=== PATIENT | male | born 1970 | race Caucasian/White ===

== ENCOUNTER → 2020-06-01 19:11 | Outpatient (CLI) | payer OTHER, SELFPAY ==
--- NOTE | 2020-06-01 19:18 | DI.RAD.S_ITS ---
PROCEDURE: XR KNEE RT 3V INDICATIONS: RIGHT KNEE PAIN TECHNIQUE: 3 views of the knee were acquired. COMPARISON: None. FINDINGS: Bones: No fractures or dislocations. No suspicious bony lesions. Medial femoral tibial compartment joint space narrowing is seen. Soft tissues: No joint effusion. No suspicious soft tissue calcifications. IMPRESSION: No right knee fracture or dislocation. Right medial femoral tibial compartment osteoarthritis. Dictated by: Aron Ramirez M.D. on 06/01/2020 at 19:33 Approved by: Aron Ramirez M.D. on 06/01/2020 at 19:33
== END ==
PROVIDERS: Referring Provider Family Medicine; Visit Provider Family Medicine
DX: M25.561 Pain in right knee (principal); M17.11 Unilateral primary osteoarthritis, right knee
CPT/HCPCS: 73562

== ENCOUNTER → 2020-07-10 15:35 | Outpatient (CLI) | payer OTHER, SELFPAY ==
--- NOTE | 2020-07-10 15:38 | DI.MRI.S_ITS ---
PROCEDURE: MR KNEE RT WO CON INDICATIONS: Pain in right knee TECHNIQUE: Noncontrast sagittal PD fast spin echo and T2 fast spin echo with fat saturation, sagittal 3-D FLASH with fat saturation; coronal T1 spin echo and PD fast spin echo with fat saturation, and axial PD fast spin echo with fat saturation through the knee. COMPARISON: [facility], CR, XR KNEE RT 3V, 06/01/2020, 19:18. FINDINGS: Image quality: Excellent. FINDINGS: Image quality: Excellent. Menisci: Medial extrusion of the medial meniscus. Amorphous and linear horizontal high signal intensity within the anterior horn, body, and posterior horn lateral meniscus is present, demonstrating inferior articular surface extension, indicating complex tearing. Lateral meniscus is intact. Cruciate ligaments: The anterior and posterior cruciate ligaments appear intact. Medial structures: The medial collateral ligament appears intact. Mild T2 signal elevation surrounds the medial collateral ligament. Visualized portions of the pes anserinus tendons appear normal. No abnormal bursal fluid. Lateral structures: The lateral collateral ligament, long and short heads of the biceps femoris tendon appear intact. The popliteus tendon appears normal. Iliotibial band appears normal. Anterior structures: The quadriceps and patellar tendons appear intact. Mild T2 signal elevation within the quadriceps tendon at the patellar insertion site. Patellar alignment is normal. No femoral trochlear dysplasia or ventral trochlear prominence. No edema in the infrapatellar fat pad. Bones and cartilage: No bone marrow contusions or fractures. Mild tricompartmental periarticular osteophyte formation. Mild subchondral degenerative marrow edema within the mid weight-bearing aspect of the medial tibial plateau. Severe articular cartilage loss diffusely overlies the weight-bearing aspects of the medial femoral condyle and medial tibial plateau. Mild articular cartilage loss diffusely overlies the weight-bearing aspects of the lateral femoral condyle and lateral tibial plateau. Joint space: There is a small knee joint effusion and a small Urbina's cyst. Normal appearing synovial plicae are incidentally noted. IMPRESSION: 1. Tricompartmental osteoarthritis with associated articular cartilage loss. 2. Complex tearing of the medial meniscus. 3. MCL strain. 4. Mild quadriceps tendinopathy. 5. Knee joint effusion and Urbina's cyst. Dictated by: Tran Melgar M.D. on 07/13/2020 at 8:28 Approved by: Tran Melgar M.D. on 07/13/2020 at 8:31
== END ==
PROVIDERS: PCP Family Medicine; Referring Provider Family Medicine; Visit Provider Family Medicine
DX: M25.561 Pain in right knee (principal); M17.11 Unilateral primary osteoarthritis, right knee; S83.231A Complex tear of medial meniscus, current injury, right knee, initial encounter; S83.511A Sprain of anterior cruciate ligament of right knee, initial encounter; M25.461 Effusion, right knee; M71.21 Synovial cyst of popliteal space [Baker], right knee
CPT/HCPCS: 73721

== ENCOUNTER 2021-06-11 19:14 | Emergency (ER) | payer OTHER, SELFPAY ==
[2021-06-11 19:27] VITALS: BP 115/76; PULSE 77; RESP 20; TEMP 36.2; O2SAT 90; BMI 30.7
--- NOTE | 2021-06-11 19:32 | DI.RAD.S_ITS ---
PROCEDURE: XR ANKLE RT MIN 3V INDICATIONS: fall TECHNIQUE: 3 views of the ankle were acquired. COMPARISON: None. FINDINGS: Bones: There is a fracture involving the distal tip of the right medial malleolus with overlying soft tissue edema. Cortical irregularity involving the dorsal, posterior aspect of the calcaneus near the posterior margin of the talus is seen only on the lateral view. This may represent a possible avulsion fracture fragment. Ankle mortise is normally aligned. No suspicious bony lesions. Soft tissues: No tibiotalar joint effusion. Achilles tendon appears normal. Moderate soft tissue swelling of the right ankle. IMPRESSION: Mildly displaced distal medial malleolar fracture with moderate overlying soft tissue edema. Mild cortical irregularity involving the dorsal aspect of the calcaneus just posterior to the talus. This may represent a possible avulsion fracture. Recommend clinical correlation. Dictated by: Tito Daniel M.D. on 06/11/2021 at 20:31 Approved by: Tito Daniel M.D. on 06/11/2021 at 20:34
--- NOTE | 2021-06-11 19:32 | DI.RAD.S_ITS ---
PROCEDURE: XR SHOULDER RT MIN 2V INDICATIONS: fall 15 ft TECHNIQUE: 2 views of the shoulder were acquired. COMPARISON: None. FINDINGS: Bones: No fractures or dislocations. No suspicious bony lesions. Visualized ribs appear intact. Degenerative changes of the acromioclavicular joint. Soft tissues: No suspicious soft tissue calcifications. IMPRESSION: Right shoulder without acute fracture or dislocation. Acromioclavicular osteoarthrosis. Dictated by: Tito Daniel M.D. on 06/11/2021 at 20:30 Approved by: Tito Daniel M.D. on 06/11/2021 at 20:31
--- NOTE | 2021-06-11 19:38 | ED.FALL ---
HPI - Fall General Chief Complaint: Fall Stated Complaint: Fall 15' off Ladder, Rt Shoulder and Ankle Injury Time Seen by Provider: 06/11/21 19:38 Source: patient Mode of arrival: Ambulatory History of Present Illness HPI Narrative: 50-year-old male nonsmoker with noncontributory medical history presents with his in the chief complaint of an accidental fall from a ladder with injury to right shoulder and ankle. He states that he was reaching from a ladder while making a tree house when the ladder started falling and he landed on his right ankle and shoulder. He is activated as a modified trauma given the fall from 15 ft. He is awake, alert and oriented, he denies any head neck or back pain. Denies any chest pain, trouble breathing nor nausea, vomiting or diarrhea. He has no abdominal pain. He has pain in his right shoulder but full range of motion. He denies numbness, tingling or weakness. He has pain in his right ankle when ambulating but denies any numbness, tingling or weakness. He has no pain in his tsai, knee, hip. He denies any trouble with bowel or bladder. Related Data Previous Rx's Medication Instructions Recorded hydrocodone 5 mg-acetaminophen 325 1 tab PO Q4-6H PRN #10 tab 06/11/21 mg tablet Allergies Allergy/AdvReac Type Severity Reaction Status Date / Time No Known Drug Allergies Allergy Verified 06/11/21 21:44 Review of Systems Review of Systems Narrative: GENERAL: Denies chills, fatigue, malaise, fever, sweats. HEENT: Denies sinus pain, ear pain, sore throat, difficulty swallowing, dizziness. RESPIRATORY: Denies dyspnea, cough, wheezing, hemoptysis, sputum. CARDIOVASCULAR: Denies chest pain, palpitations, orthopnea, edema, GASTROINTESTINAL: Denies nausea, vomiting, abdominal pain, diarrhea, constipation, melena. : Denies dysuria, frequency, incontinence, hematuria, urinary retention. MUSCULOSKELETAL: See HPI SKIN: Denies rash, skin lesions, or other NEUROLOGIC: Denies weakness, headache, numbness, change in speech, confusion, seizures, incoordination. PSYCHIATRIC: No concerning psychosocial issues. 12 point review of systems is negative except for those stated above Exam Narrative Exam Narrative: GENERAL: [50] year old patient appears stated age. Well-developed patient, in mild distress. GCS 15, sitting upright in the cart, A&O x3 HEAD: Atraumatic. Normocephalic. EYES: Pupils equal round and reactive. No hyphema Extraocular motions intact. No scleral icterus. No injection or drainage. ENT: Nose without bleeding, purulent drainage. No nasal septal hematoma or hemotympanum Throat without erythema, tonsillar hypertrophy or exudate. Airway patent. NECK: Trachea midline. Non tender CARDIOVASCULAR: Regular rate and rhythm without murmurs, gallops, or rubs. RESPIRATORY: Clear to auscultation. Breath sounds equal bilaterally. No wheezes, rales, or rhonchi. GASTROINTESTINAL: Abdomen soft, non-tender, nondistended. EXTREMITIES: Right shoulder tender to palpate, no obvious deformity, full but painful range of motion. No pain in elbow or wrist, this is closed and neurovascularly intact. Moderate swelling to right ankle, no obvious deformity, closed and neurovascularly intact, no pain in foot, cap refill less than 2 seconds, dorsalis pedis intact. No pain on knee or hip exam, no ankle ligamentous instability or laxity BACK: Nontender without deformity or crepitance. No flank tenderness. NEURO: AOx3. SKIN: No rash or erythema of visible areas Initial Vital Signs Initial Vital Signs: Vital Signs Temperature 97.1 F L 06/11/21 19:27 Pulse Rate 77 06/11/21 19:27 Respiratory Rate 20 06/11/21 19:27 Blood Pressure 115/76 06/11/21 19:27 Pulse Oximetry 90 L 06/11/21 19:27 Procedures Orthopedic Splinting/Casting Injury #1: Side: right Upper Extremity Injury Location: shoulder Upper Extremity Immobilizer: sling/shoulder immobilizer Post splinting neuro exam: intact Post splinting vascular exam: intact Placed by: Nursing Injury #2: Lower Extremity Injury Location: ankle Lower Extremity Immobilizer: boot orthosis Post splinting neuro exam: intact Post splinting vascular exam: intact Course Orders Ordered: Discontinued Medications Hydrocodone Bitart/Acetaminophen (Hydrocodone/Acet 5/325 Prepack) 1 bottle MISC SEEINSTR ONE Stop: 06/11/21 21:30 Last Admin: 06/11/21 21:44 Dose: 1 bottle Documented by: ATAYLOR Diphtheria/Tetanus/Acell Pertussis (Tet,Diph,Pertuss(Acell),Vac/Pf 0.5 Ml Syringe) 0.5 ml IM .ONCE ONE Stop: 06/11/21 21:30 Last Admin: 06/11/21 21:44 Dose: 0.5 ml Documented by: ATAYLOR Consultations Consultation #1: Findings discussed with on-call orthopedist, walking boot and sling appropriate, no need for advanced imaging of extremities. Vital Signs Vital signs: Vital Signs - 8 hr 06/11/21 19:27 Temperature 97.1 F L Pulse Rate 77 Respiratory Rate 20 Blood Pressure 115/76 Pulse Oximetry 90 L MDM - Fall Imaging Data Extremity x-ray #1: Radiologist's Impression: [address] [address] XRay Report Signed Patient: Rohith Wong MR#: [id number] : 1970 Acct:[id number] Age/Sex: 50 / M Date of Service: 06/11/21 Loc: ED Accession Number: [id number] ?? Procedure: XR shoulder RT min 2V Ordering Provider: Alexander Reynaga D.O. PROCEDURE:? XR SHOULDER RT MIN 2V ? INDICATIONS:? fall 15 ft ? TECHNIQUE:? 2 views of the shoulder were acquired.? ? COMPARISON:? None. ? FINDINGS:? ? Bones:? No fractures or dislocations.? No suspicious bony lesions.? Visualized ribs appear intact.? Degenerative changes of the acromioclavicular joint. ? Soft tissues:? No suspicious soft tissue calcifications.? ? IMPRESSION:? Right shoulder without acute fracture or dislocation.? Acromioclavicular osteoarthrosis. ? ? Dictated by: Tito Daniel M.D. on 06/11/2021 at 20:30 ? ? Approved by: Tito Daniel M.D. on 06/11/2021 at 20:31? Extremity x-ray #2: Radiologist's Impression: Chart Viewer Diagnostics Subcategory All Activity ??:?? All Time ??:?? All Subcategories Filter Laboratory Imaging Microbiology Pathology Blood Bank Tests Cardiovascular Other Specialty DATE TYPE STATUS REF RANGE/AUTHOR Hx 06/11/21 19:32 Shoulder X-Ray Signed Tito Daniel 06/11/21 19:32 Ankle X-Ray Signed Tito Daniel 07/10/20 15:38 Knee MRI Signed Tran Melgar 06/01/20 19:18 Knee X-Ray Signed JamesAron Jay A ED 50, M?1970 MRN#? [id number] DEP ER,?[facility] ED??? 180.34cm 99.79kg BMI: 30.7kg/m? Fall Acc#? [id number] Resus Status Not Ordered No Hx Avail Special Indicators No Data to Display Home Meds Confirmed Prescription Monitoring Program Total 30 MME/Day Pending Discharge MEDICATIONS (INSTRUCTIONS) LAST TAKEN Active hydrocodone-acetaminophen 1 tabPOQ4-6HPRN#10 tab 30 MME/Day Allergies No Known Drug Allergies Problems ? ONSET Shoulder sprain Ankle fracture, right Vital Signs 06/11/21 22:00 BP 124/82? Pulse 94?H Resp 16? O2 Sat 96? Delivery Room Air? Diagnostics Reports Rohith Wong??50??M??1970 ? Allergy/Adv: No Known Drug Allergies Close Shoulder X-Ray (Signed) Tito Daniel - 06/11/21 Ankle X-Ray (Signed) Tito Daniel - 06/11/21 Knee MRI (Signed) Tran Melgar - 07/10/20 Knee X-Ray (Signed) Aron Ramirez - 06/01/20 [place] [address] XRay Report Signed Patient: Rohith Wong MR#: [id number] : 1970 Acct:[id number] Age/Sex: 50 / M Date of Service: 06/11/21 Loc: ED Accession Number: [id number] ?? Procedure: XR ankle RT min 3V Ordering Provider: Alexander Reynaga D.O. PROCEDURE:? XR ANKLE RT MIN 3V ? INDICATIONS:? fall ? TECHNIQUE:? 3 views of the ankle were acquired.? ? COMPARISON:? None. ? FINDINGS:? ? Bones:? There is a fracture involving the distal tip of the right medial malleolus with overlying soft tissue edema.? Cortical irregularity involving the dorsal, posterior aspect of the calcaneus near the posterior margin of the talus is seen only on the lateral view.? This may represent a possible avulsion fracture fragment.? Ankle mortise is normally aligned.? No suspicious bony lesions.? ? Soft tissues:? No tibiotalar joint effusion.? Achilles tendon appears normal.? Moderate soft tissue swelling of the right ankle. ? IMPRESSION:? Mildly displaced distal medial malleolar fracture with moderate overlying soft tissue edema. ? Mild cortical irregularity involving the dorsal aspect of the calcaneus just posterior to the talus.? This may represent a possible avulsion fracture.? Recommend clinical correlation. ? Dictated by: Tito Daniel M.D. on 06/11/2021 at 20:31 ? ? Approved by: Tito Daniel M.D. on 06/11/2021 at 20:3 MDM Narrative Medical decision making narrative: Patient has very reassuring history and physical exam, despite fall his images are very limited, closed and neurovascularly intact. He has no head neck or back pain. Patient is alert and oriented, orthopedics have been consulted regarding findings on imaging and splinting per their wishes. Patient is given extensive return precautions and questions have been answered to his apparent satisfaction Discharge Plan Departure Patient Disposition: Home Clinical Impression: Shoulder sprain, Ankle fracture, right Instructions: DI for Ankle Fracture, DI for Shoulder Sprain Activity Restrictions/Additional Instructions: *You have been diagnosed with [fall with mild right ankle fracture and right shoulder sprain. As we discussed your physical exam and imaging is largely very reassuring. You do have a small fracture of your right ankle but after discussion with Orthopedics your able to ambulate as tolerated with the boot provided *What to do: *Please continue to take your regular medications as directed. [x ] New medication prescriptions sent to your pharmacy: [ [facility]] [ ] New medication written as a paper prescription [x] Tylenol and occasional Motrin for pain *Please follow up with [Benny ] of [facility] in 2-3 days, call for an appointment. Let them know you were seen in the Emergency Department and that we ask that you be seen in follow up. We will electronically transmit a record of today's note if your PCP is in our system *Return to Emergency Department if you should have any new, worsening or concerning symptoms, such as [worsening pain, significant swelling, cold extremities, numbness, tingling, weakness or other bothersome symptoms Splint Care: Keep splint clean and dry. Elevated affected body part to decrease swelling. OK to use ice pack on the affected body part. Use for 15-20 minutes each time, for 5-6x per day. If you develop worsening pain, numbness, tingling, discoloration of the affected body part, loosen the splint and either see your doctor for an urgent re-assessment, or return to the Emergency Department. Return to the Emergency Department for any new or worsening symptoms. Prescriptions: New hydrocodone-acetaminophen 5-325 mg tablet 1 tab PO Q4-6H PRN (Reason: pain) Qty: 10 0RF Referrals: Sunday Zapata MD [Physician] - Abraham Covarrubias MD [Primary Care Provider] -
[2021-06-11] MEDS: HYDROCODONE/ACET 5/325 PREPACK 1 BOTTLE MISC (21:44)
[2021-06-11] MEDS: TET,DIPH,PERTUSS(ACELL),VAC/PF 0.5 ML SYRINGE IM (21:44)
[2021-06-11 22:00] VITALS: BP 124/82; PULSE 94; RESP 16; O2SAT 96
== END 2021-06-11 22:00 | disposition home or self-care (01) ==
PROVIDERS: Emergency Provider Emergency Medicine; PCP Family Medicine
DX: S43.401A Unspecified sprain of right shoulder joint, initial encounter (principal); S82.51XA Displaced fracture of medial malleolus of right tibia, initial encounter for closed fracture; W11.XXXA Fall on and from ladder, initial encounter; Y93.89 Activity, other specified; Z23 Encounter for immunization
CPT/HCPCS: 73030; 73610; 90471; 99283; 90715

== ENCOUNTER → 2022-01-23 16:19 | Outpatient (CLI) | payer OTHER, SELFPAY ==
--- NOTE | 2022-01-23 16:20 | DI.RAD.S_ITS ---
PROCEDURE: XR WRIST LT MIN 3V INDICATIONS: Pain left wrist TECHNIQUE: 4 views of the wrist were acquired. COMPARISON: None. FINDINGS: Bones: No fractures or dislocations. No suspicious bony lesions. Scaphoid view: No navicular fractures are seen. Soft tissues: No suspicious soft tissue calcifications. IMPRESSION: No displaced fractures are seen. If there is snuffbox tenderness (or other clinical suspicion for a fracture not seen on these images) then a repeat examination would be recommended in 10 to 14 days, following splinting. Dictated by: Richy Bhat M.D. on 01/23/2022 at 15:56 Approved by: Richy Bhat M.D. on 01/23/2022 at 15:57
== END ==
PROVIDERS: PCP Family Medicine; Referring Provider Physician Assistant; Visit Provider Physician Assistant
DX: S69.92XA Unspecified injury of left wrist, hand and finger(s), initial encounter (principal); X58.XXXA Exposure to other specified factors, initial encounter
CPT/HCPCS: 73110

== ENCOUNTER 2023-03-16 15:44 | Emergency (ER) | payer OTHER, SELFPAY ==
[2023-03-16 15:55] VITALS: BP 202/113; PULSE 115; RESP 20; TEMP 36.6; O2SAT 98; BMI 32.1
--- NOTE | 2023-03-16 15:55 | DI.RAD.S_ITS ---
PROCEDURE: XR CHEST 1V INDICATIONS: chest pain TECHNIQUE: One view of the chest was acquired. COMPARISON: None. FINDINGS: Surgical changes and devices: None. Lungs and pleura: Lungs are clear. No pleural effusions or pneumothorax. Mediastinum: Mediastinal contours appear normal. Heart size is normal. Bones and chest wall: No suspicious bony lesions. Overlying soft tissues appear unremarkable. IMPRESSION: No acute cardiopulmonary process. Dictated by: Lisa Zeng M.D. on 03/16/2023 at 16:56 Approved by: Lisa Zeng M.D. on 03/16/2023 at 16:57
[2023-03-16 16:20] LABS: Add Manual Diff / Slide Review NO; Basophils Absolute Auto 100 /uL (0-100); Eosinophils Absolute Auto 200 /uL (0-450); Eosinophils Percent Auto 2.7 % (2-4); Hemoglobin 16.2 g/dL (13.5-17.5); Lymphocytes Absolute Auto 1400 /uL (1100-4500); Lymphocytes Percent Auto 24.4 % (25-40); Mean Corpuscular HGB Conc 34.5 % (30-36); Mean Corpuscular Hemoglobin 30.4 PG (26-34); Mean Corpuscular Volume 88.1 fL (80-100); Monocytes Absolute Auto 300 /uL (0-900); Neutrophils Absolute Auto 3700 /uL (1500-7000); Neutrophils Percent Auto 65.9 % (50-75); Platelet Count 240 X10^3/uL (150-400); Red Blood Cell Count 5.34 X10^6/uL (4.5-5.9); Red Cell Distribution Width 13.6 % (11.6-14.8); White Blood Cell Count 5.7 X10^3/uL (4.5-11.0)
[2023-03-16 16:25] LABS: Prothrombin Time 11.5 SECONDS (9.4-12.5)
[2023-03-16 16:26] VITALS: BP 170/101; PULSE 88; RESP 16; O2SAT 99
[2023-03-16 16:28] LABS: PTT Partial Thromboplastin Tim 29 SECONDS (25.1-36.5)
[2023-03-16 16:32] LABS: Alanine Aminotransferase 102 IU/L (<50); Albumin 4.7 g/dL (3.5-5.0); Albumin Globulin Ratio 1.4 (1.0-2.8); Alkaline Phosphatase 69 U/L (38-126); Aspartate Aminotransferase 57 IU/L (17-59); Bilirubin Total 0.8 mg/dL (0.2-1.3); Blood Urea Nitrogen 12 mg/dL (9-20); Calcium 9.7 mg/dL (8.4-10.2); Carbon Dioxide 26 mmol/L (22-32); Chloride 99 mmol/L (98-107); Creatine Kinase 136 U/L (55-170); Estimated Glomerular Filt Rate > 60 mL/min (>60); Globulin 3.4 g/dL (1.7-4.1); Glucose 104 mg/dL (70-100); HEMOLYSIS < 15 (0-50); Lipase 64 U/L (23-300); Potassium 3.9 mmol/L (3.4-5.1); Sodium 135 mmol/L (137-145); Total Protein 8.1 g/dL (6.3-8.2)
[2023-03-16 16:42] LABS: Troponin I < 0.012 ng/mL (0.01-0.034)
--- NOTE | 2023-03-16 17:00 | ED.CHESTPAIN ---
HPI - Chest Pain General Chief Complaint: Chest Pain Stated Complaint: chest pain, high blood pressure Time Seen by Provider: 03/16/23 16:26 Source: patient Mode of arrival: Ambulatory History of Present Illness HPI narrative: 52-year-old male with history of hypertension, hyperlipidemia presents by private vehicle from home for 3 weeks of intermittent left-sided suprasternal chest discomfort. Patient states that he has been incorporating pushups into his workout routine, which initially felt was causing his pain and he thought nothing of it, however today his blood pressure was 160 systolic and he noticed pain radiating into his left shoulder, which caused him concern and he presented to the ER for evaluation. Denies history of heart problems. Denies family history of heart problems. Never smoker. Related Data Home Medications Medication Instructions Recorded Confirmed lisinopril 5 mg tablet mg 03/16/23 rosuvastatin 10 mg tablet (Crestor) mg PO DAILY 03/16/23 Allergies Allergy/AdvReac Type Severity Reaction Status Date / Time No Known Drug Allergies Allergy Verified 03/16/23 15:58 Review of Systems Review of Systems Narrative: Negative except as noted above Patient History Medical History (Updated 03/16/23 @ 17:55 by Rebecca Shaikh MD) Injury of left wrist Social History Smoking Status: Never smoker Smoking Status: Never smoker alcohol intake frequency: 3 or more drinks per day Substance Use Type: does not use Exam Initial Vital Signs Initial Vital Signs: Vital Signs Temperature 98 F 03/16/23 15:55 Pulse Rate 115 H 03/16/23 15:55 Respiratory Rate 20 03/16/23 15:55 Blood Pressure 202/113 H 03/16/23 15:55 Pulse Oximetry 98 03/16/23 15:55 Oxygen Delivery Method Room Air 03/16/23 15:55 Const: Awake, alert, no acute distress, nontoxic appearing Cardiac: regular rate, regular rhythm, pain over L pectoralis muscle RESP: unlabored, clear bilaterally, no wheezing GI: Atraumatic, soft, nontender MSK: Atraumatic, full range of motion, pulses equal Skin: Warm, Dry, intact, no rashes Neuro: AO x3, CN II-XII grossly intact, moves all extremities Course Orders Ordered: Discontinued Medications Aspirin (Aspirin 81 Mg Chew Tab) 324 mg PO NOW ONE Stop: 03/16/23 15:56 Last Admin: 03/16/23 17:14 Dose: Not Given Documented By: JOSE Vital Signs Vital signs: Vital Signs - 8 hr 03/16/23 15:55 03/16/23 16:26 Temperature 98 F Pulse Rate 115 H 88 Respiratory Rate 20 16 Blood Pressure 202/113 H 170/101 H Pulse Oximetry 98 99 Oxygen Delivery Method Room Air Room Air MDM - Chest Pain Differential Diagnosis Differential diagnosis: Likely pneumothorax, atypical chest pain and costochondritis Lab Data 03/16/23 16:10 03/16/23 16:10 Labs: Lab Results 03/16/23 Range/Units 16:10 WBC 5.7 (4.5-11.0) X10^3/uL RBC 5.34 (4.5-5.9) X10^6/uL Hgb 16.2 (13.5-17.5) g/dL Hct 47.0 (41-53) % MCV 88.1 (80-100) fL MCH 30.4 (26-34) PG MCHC 34.5 (30-36) % RDW 13.6 (11.6-14.8) % Plt Count 240 (150-400) X10^3/uL Neut % (Auto) 65.9 (50-75) % Lymph % (Auto) 24.4 L (25-40) % [place] % (Auto) 6.0 (3-14) % Eos % (Auto) 2.7 (2-4) % Baso % (Auto) 1.0 (0-2) % Neut # (Auto) 3700 (5069-9140) /uL Lymph # (Auto) 1400 (1240-4638) /uL [place] # (Auto) 300 (0-900) /uL Eos # (Auto) 200 (0-450) /uL Baso # (Auto) 100 (0-100) /uL PT 11.5 (9.4-12.5) SECONDS INR 1.0 (0.9-1.3) APTT 29 (25.1-36.5) SECONDS Sodium 135 L (137-145) mmol/L Potassium 3.9 (3.4-5.1) mmol/L Chloride 99 (98-107) mmol/L Carbon Dioxide 26 (22-32) mmol/L BUN 12 (9-20) mg/dL Creatinine 0.80 (0.66-1.25) mg/dL Estimated GFR > 60 (>60) mL/min BUN/Creatinine Ratio 15.0 (6-22) Glucose 104 H (70-100) mg/dL Calcium 9.7 (8.4-10.2) mg/dL Magnesium 2.0 (1.6-2.3) mg/dL Total Bilirubin 0.8 (0.2-1.3) mg/dL AST 57 (17-59) IU/L ALT 102 H (<50) IU/L Alkaline Phosphatase 69 (38-126) U/L Total Creatine Kinase 136 (55-170) U/L Troponin I < 0.012 (0.01-0.034) ng/mL Total Protein 8.1 (6.3-8.2) g/dL Albumin 4.7 (3.5-5.0) g/dL Globulin 3.4 (1.7-4.1) g/dL Albumin/Globulin Ratio 1.4 (1.0-2.8) Lipase 64 (23-300) U/L ECG Data Interpretation: Normal sinus rhythm. Normal MD intervals, no STT wave changes, no STEMI MDM Narrative Medical decision making narrative: Well-appearing patient with intermittent symptoms, chest pain is reproducible to palpation and history is less consistent with ACS. EKG is sinus rhythm, initial troponin undetectable, chest x-ray without acute pathology. Patient counseled on causes of elevated blood pressure and recommended increasing patient's lisinopril dose to 30 mg from 20 mg. I did advise the patient that based on his age and risk factors it would be prudent for him to follow with a [facility], however this can be done on an outpatient basis and did not have to be done in the hospital. Patient stated he had plenty of his medication and did not need a refill. Cardiology referral provided in patient's discharge paperwork. ED return precautions discussed at bedside. Patient expressed understanding of the plan and is in agreement at this time. All questions answered at the time of discharge. Discharge Plan Departure Patient Disposition: Home Clinical Impression: Chest pain Instructions: DI for Chest Pain Activity Restrictions/Additional Instructions: Today your labs and imaging were normal. Your heart enzymes are undetectable, and her chest x-ray showed no concerning findings. Given your age and risk factors I do recommend that you see a [facility], a referral is in your paperwork. Please call for the next available appointment. If your blood pressure continues to be elevated I do recommend that you increase your lisinopril to 30 mg daily. Please follow up with your primary care physician. Prescriptions: No Action lisinopril 5 mg Tablet rosuvastatin [Crestor] 10 mg Tablet PO DAILY Referrals: Rolan Jenkins MD [Physician] - Abraham Covarrubias MD [Primary Care Provider] - Stand Alone Forms: Patient Portal/API
[2023-03-16 18:09] VITALS: BP 157/106; PULSE 99; RESP 18; O2SAT 98
== END 2023-03-16 18:10 | disposition home or self-care (01) ==
PROVIDERS: Emergency Provider Emergency Medicine; PCP Family Medicine
DX: R07.9 Chest pain, unspecified (principal)
CPT/HCPCS: 36415; 71045; 80053; 82550; 83690; 83735; 84484; 85025; 85610; 85730; 93005; 93010; 99283; 99284